=== PATIENT | male | born 1995 | race Caucasian/White ===

== ENCOUNTER 2018-02-02 17:27 | Emergency (ER) | payer OTHER ==
[2018-02-02] MEDS ORDERED: Adacel (T-DAP) 0.5 ML VIAL ONE (17:45)
--- NOTE | 2018-02-02 18:05 | RAD ---
TWO VIEWS OF THE LEFT FOURTH FINGER 02/02/18 COMPARISON: None. HISTORY: Trauma, pain. FINDINGS: There is soft tissue irregularity involving the distal aspect of the fourth digit suggesting lacerati on. No associated fracture, dislocation or radiopaque foreign body. IMPRESSION: Focal soft tissue swelling with no displaced fracture or dislocation. POS: [facility]
[2018-02-02] MEDS ORDERED: Bacitracin Zinc 1 Packet ONE (18:19)
== END 2018-02-02 18:54 | disposition home or self-care (01) ==
LOC: SCSER 17:27
DX: S61.315A Laceration without foreign body of left ring finger with damage to nail, initial encounter (principal); Z23 Encounter for immunization; W29.8XXA Contact with other powered hand tools and household machinery, initial encounter
CPT/HCPCS: 90471; 90715